=== PATIENT | male | born 1960 | race Caucasian/White ===

== ENCOUNTER 2016-05-17 21:05 | Emergency (ER) | payer OTHER ==
[~2016-05-17] VITALS: Ht 177.8 cm; Wt 86.7 kg
[~2016-05-17 21:05] MED LIST: NOHOMEMEDS
[2016-05-17 21:29] LABS: HEMATOCRIT 45.3 % (38.0-50.0); MCH 29.2 PG (29.0-34.0); MCHC 33.6 G/DL (30.0-36.0); MCV 87.1 FL (86-99); MEAN PLAT.VOLUME 11.2 uM^3 (9.0-12.4); PLATELET COUNT 176 K/uL (156-360); RBC DIS.WIDTH-CV 13.3 % (11.8-14.6); RBC DIS.WIDTH-SD 42.8 % (39-53); WHITE BLOOD COUNT 7.2 K/uL (4.1-10.2)
[2016-05-17 21:42] LABS: CHLORIDE 106 mEq/L (99-109); POTASSIUM 3.7 mEq/L (3.7-5.4); SODIUM 141 mEq/L (136-147)
[2016-05-17 21:44] LABS: GLUCOSE 127 mg/dL (70-99)
[2016-05-17 21:45] LABS: ANION GAP 10 MEQ/L (2-14)
[2016-05-17 21:47] LABS: GFR ESTIMATE (CALCULATED) > 59 mL/min/
[2016-05-17 21:48] LABS: UREA NITROGEN (BUN) 10 mg/dL (9-23)
[2016-05-17 21:50] LABS: TROP-I INTERPRETATION NEGATIVE; TROPONIN-I 0.04 ng/mL (0.0-0.30)
[2016-05-18 01:11] VITALS: BP 156/90
== END 2016-05-18 01:12 | disposition home or self-care (01) ==
LOC: EME → EDBD 21:05 → EME 05-18 01:12
DX: I10 Essential (primary) hypertension (principal); Z91.14 Patient's other noncompliance with medication regimen; G89.29 Other chronic pain; M79.602 Pain in left arm; M25.512 Pain in left shoulder; Z86.73 Personal history of transient ischemic attack (TIA), and cerebral infarction without residual deficits; H91.90 Unspecified hearing loss, unspecified ear; F17.200 Nicotine dependence, unspecified, uncomplicated
CPT/HCPCS: 71010; 71020; 80048; 84484; 85027; 93005; 99281; 99285